=== PATIENT | male | born 1995 | race Caucasian/White ===

== ENCOUNTER 2016-04-28 05:47 | Emergency (ER) | payer SELFPAY ==
[2013-11-09 09:05] VITALS: BMI 39.8
[~2016-04-28 05:47] MED LIST: HYDROCODON-ACE1 EAC9 PO
[2016-04-28 06:18] LABS: BASOPHILS 0.2 % (0.0-2.0); EOSINOPHILS 1.2 % (0-7); HEMOGLOBIN 16.9 g/dL (13.5-17.5); IMMATURE GRANULOCYTES 0.3 % (0-5); LYMPHOCYTES 20.2 % (15-50); MCH 33.6 pg (26.0-34.0); MCV 93.4 fL (80.0-100.0); MEAN PLATELET VOLUME 10.5 fL (7.4-10.4); MONOCYTES 8.6 % (2-11); NEUTROPHILS 69.5 % (40-80); PLATELET COUNT 246 10x3/uL (130-400); RBC 5.03 10x6/uL (4.20-6.10); RDW 12.3 % (11.5-14.5); WBC 11.4 10x3/uL (4.8-10.8)
[2016-04-28 06:40] LABS: AMORPHOUS SEDIMENT >1+ /lpf (NONE SEEN); APPEARANCE CLOUDY (CLEAR); BACTERIA NONE SEEN /hpf (NONE SEEN); BILIRUBIN NEGATIVE (NEGATIVE); COLOR YELLOW (YELLOW); EPITHELIAL CELLS NSEEN /hpf (0-5); GLUCOSE NEGATIVE (NEGATIVE); KETONE MODERATE mg/dL (NEGATIVE); LEUKOCYTE ESTERASE TRACE (NEGATIVE); NITRITE NEGATIVE (NEGATIVE); PROTEIN NEGATIVE (NEGATIVE); RED CELLS - URINE 0-5 /hpf (0-5); SPECIFIC GRAVITY 1.015 (1.005-1.020); SPERMATOZOA OCC /hpf (NONE SEEN); UROBILINOGEN NORMAL (NORMAL); WHITE CELLS - URINE 0-5 /hpf (0-5)
[2016-04-28 06:41] LABS: ALBUMIN 4.7 g/dL (3.4-5.0); ALKALINE PHOSPHATASE 49 U/L (46-116); ALT (SGPT) 28 U/L (10-68); AMYLASE - SERUM 44 U/L (25-115); BILIRUBIN - TOTAL 0.77 mg/dL (0.2-1.3); CALC OSMOLALITY 266 mosm/kg (275-300); CALCIUM 10.3 mg/dL (8.5-10.1); CARBON DIOXIDE 20.3 mmol/L (21.0-32.0); CHLORIDE - SERUM 99 mmol/L (98-107); CREATININE - SERUM 1.1 mg/dL (0.6-1.3); GLUCOSE 126 mg/dL (74-106); LIPASE 128 U/L (73-393); POTASSIUM - SERUM 3.3 mmol/L (3.5-5.1); SODIUM 133 mmol/L (136-145); UREA NITROGEN 10 mg/dL (7-18); eGFR NON AFRICAN AMERICAN > 90 mL/min (90-120)
[2016-04-28 06:43] LABS: C-REACTIVE PROTEIN < 0.2 mg/dL (0.0-0.9)
== END 2016-04-28 07:52 | disposition home or self-care (01) ==
LOC: D.ER 05:47
PROVIDERS: Emergency Medicine
DX: R10.13 Epigastric pain (principal); R11.10 Vomiting, unspecified; F19.10 Other psychoactive substance abuse, uncomplicated; F12.10 Cannabis abuse, uncomplicated

== ENCOUNTER 2017-06-05 13:30 | Emergency (ER) | payer MEDICAID ==
[2013-11-09 09:05] VITALS: BMI 39.8
[2017-06-05 16:41] LABS: APPEARANCE CLEAR (CLEAR); BILIRUBIN NEGATIVE (NEGATIVE); COLOR DK YELLOW (YELLOW); GLUCOSE NEGATIVE (NEGATIVE); KETONE LARGE mg/dL (NEGATIVE); NITRITE NEGATIVE (NEGATIVE); PROTEIN TRACE mg/dL (NEGATIVE); UROBILINOGEN NORMAL (NORMAL)
[2017-06-05 16:44] LABS: BACTERIA MODERATE /hpf (NONE SEEN); MUCUS <1+ /lpf (NONE SEEN); WHITE CELLS - URINE 0-5 /hpf (0-5)
[2017-06-05 16:58] LABS: BASOPHILS 0.2 % (0-2); EOSINOPHILS 0 % (0-7); HEMATOCRIT 46.3 % (42.0-54.0); HEMOGLOBIN 16.9 g/dL (13.5-17.5); IMMATURE GRANULOCYTES 0.2 % (0-5); LYMPHOCYTES 35.3 % (15-50); MCH 33.7 pg (26.0-34.0); MCHC 36.5 g/dL (31.0-37.0); MCV 92.4 fL (80.0-100.0); MONOCYTES 22.7 % (2-11); NEUTROPHILS 41.6 % (40-80); PLATELET COUNT 183 10x3/uL (130-400); RBC 5.01 10x6/uL (4.20-6.10); RDW 12.1 % (11.5-14.5)
[2017-06-05 17:16] LABS: ALBUMIN 4.5 g/dL (3.4-5.0); ALKALINE PHOSPHATASE 45 U/L (46-116); ALT (SGPT) 51 U/L (10-68); AMYLASE - SERUM 34 U/L (25-115); CALC OSMOLALITY 272 mosm/kg (275-300); CALCIUM 9.7 mg/dL (8.5-10.1); CARBON DIOXIDE 23.7 mmol/L (21.0-32.0); CHLORIDE - SERUM 96 mmol/L (98-107); CREATININE - SERUM 1.1 mg/dL (0.6-1.3); GLUCOSE 90 mg/dL (74-106); LIPASE 82 U/L (73-393); PROTEIN - SERUM 8.2 g/dL (6.4-8.2); SODIUM 136 mmol/L (136-145); UREA NITROGEN 14 mg/dL (7-18); eGFR NON AFRICAN AMERICAN 90 mL/min (90-120)
== END 2017-06-05 20:32 | disposition home or self-care (01) ==
LOC: D.ER 13:30
PROVIDERS: Emergency Medicine
DX: R10.13 Epigastric pain (principal); E87.6 Hypokalemia; R11.2 Nausea with vomiting, unspecified; F17.200 Nicotine dependence, unspecified, uncomplicated

== ENCOUNTER 2017-06-07 12:01 | Inpatient (IN) | payer MEDICAID ==
[~2017-06-07] VITALS: Ht 174 cm; Wt 130.3 kg
--- NOTE | ~2017-06-07 | CN ---
PATIENT NAME:IVETT HINES MEDICAL RECORD: [id number] : 95 LOCATION:[facility] ADMIT DATE: 06/07/17 ACCOUNT: [id number] CONSULTING PHYSICIAN: IVETT REINA MD REFERRING PHYSICIAN: RAJAN WESTON MD DATE OF CONSULTATION: 06/07/2017 CHIEF COMPLAINT: Pain. HISTORY OF PRESENT ILLNESS: The patient has been having biliary colic type symptoms. He has been having abdominal pain in the epigastrium as well as the right upper quadrant, which radiates around to the back. It is made worse by eating food. Palpation and eating aggravates. Nothing alleviates. He has had nausea and vomiting as well. He describes the pain as severe. This is a consultation note addendum. For the typed portion of the consult note, please see the chart. This will include the past medical and surgical history, current medications, allergies, social history as well as family history. REVIEW OF SYSTEMS: As described above. No chest pain, no shortness of breath. Positive for headache. Positive for back pain. The review of systems is negative other than as is described above. PHYSICAL EXAMINATION: GENERAL: The patient does not appear acutely ill. He does not appear chronically ill. VITAL SIGNS: Reviewed. EARS: External ears appear normal. EYES: Extraocular movements are intact. NECK: Trachea is midline. CHEST: No intercostal retractions. PULMONARY: Nonlabored, no stridor. ABDOMEN: There is a Tang sign. Tenderness in the epigastrium as well as right upper quadrant. No Rovsing sign. No peritonitis to percussion. EXTREMITIES: No peripheral cyanosis. INTEGUMENT: No rash, no ulcerations. PSYCHIATRIC: Anxious affect. NEUROLOGIC: Answers questions appropriately, moves all extremities well. BACK: No thoracic kyphosis. LYMPHATICS: No lymphangitic streaking of the exposed extremities. IMPRESSION: Abdominal pain, likely due to biliary disease. PLAN: Continued radiologic workup for biliary disease. It is likely that he will require a laparoscopic cholecystectomy in the next few days. TRANSINT:[id number] Voice Confirmation ID: [id number] DOCUMENT ID: [id number] CONSULT REPORT [id number] IVETT HINES ROBERT MD CC: [id number] DICTATION DATE: 06/10/17 0955 MEDICAL RECORD LIBRARIAN: 06/10/17 1025 ADM IN [facility] [id number] [place] [address]
--- NOTE | ~2017-06-07 | OP ---
PATIENT NAME: IVETT HINES MEDICAL RECORD: [id number] :95 LOCATION:[id number] ADMISSION DATE:06/07/17 SURGEON: IVETT REINA MD DATE OF OPERATION: 06/09/2017 PREOPERATIVE DIAGNOSIS: Biliary dyskinesia. POSTOPERATIVE DIAGNOSIS: Biliary dyskinesia with hepatomegaly. PROCEDURES: 1. Laparoscopic cholecystectomy. 2. Intraoperative cholangiography without immediate surgeon interpretation. 3. An 18-gauge core needle liver biopsy. SURGEON: Ivett Reina MD COMPUTER AIDED DESIGN TECHNICIAN: None. BLOOD LOSS: Minimal. ANESTHESIA: General. COMPLICATIONS: None. The risks, possible complications, and alternatives to the procedure were explained to the patient. He elects to proceed. The indication for liver biopsy was hepatomegaly. The patient had exact reproduction of symptoms during the PIPIDA scan. OPERATIVE COURSE: The patient was conveyed to the operating room electively on 06/09/2017. General anesthesia was induced by anesthesia staff. The abdomen was sterilely prepped and draped. A small skin anita was accomplished in the left upper quadrant. A Veress needle was inserted through the skin anita into the peritoneal cavity. CO2 insufflation was begun. Once a sufficient pneumoperitoneum had been achieved, a 5-mm trocar was inserted through an incision in the right upper quadrant. Under direct internal vision utilizing a television camera, a 12-mm trocar was inserted through an incision at the umbilicus. Another 5-mm trocar was inserted through an incision in the left upper quadrant. Another 5-mm trocar was inserted through an incision in the right upper quadrant. During insertion of the Veress needle and all trocars, there appeared to have been no injury to the bowels, any intraperitoneal or retroperitoneal structures. Under laparoscopic guidance, I percutaneously accessed the right upper quadrant utilizing an 18-gauge core needle liver biopsy device. Cores were obtained over the convexity of the liver. The biopsy sites were made hemostatic with electrocautery. I then advanced a cholangiogram trocar. I punctured the fundus of the gallbladder. I aspirated bile. I then injected dye. Under real time fluoroscopy, static images were obtained. These were cholangiography images. The cholangiogram trocar was removed. The gallbladder was grasped and retracted cephalad. The infundibulum was grasped and retracted laterally. Blunt dissection was begun on the triangle of OPERATIVE REPORT [id number] IVETT HINES Calot. One cystic artery and 1 cystic duct were identified. These were clipped multiply and divided between clips. The gallbladder was then excised from its bed and the liver. It was placed within an Endobag retrieval device and was withdrawn through the umbilical fascia defect. The 12-mm trocar was replaced and the abdomen reinsufflated. I irrigated and aspirated the right upper quadrant. There was no bleeding even at low pressure of 8. The fascia at the umbilical site was closed with the Ron-Leslee suture closure device and 0 Vicryl suture. All the trocars were removed and the abdomen desufflated. The umbilical skin was closed with interrupted 4-0 Vicryl Rapide sutures. The skin at the end of sites was closed with multiple interrupted intracuticular 4-0 Vicryls. Benzoin and Steri-Strips were applied. The patient was then extubated and conveyed to post-anesthesia care unit where he was in stable condition. TRANSINT:[id number] Voice Confirmation ID: [id number] DOCUMENT ID: [id number] IVETT REINA MD CC: RAJAN WESTON MD [id number] DICTATION DATE: 06/10/17 1044 MEDICAL I D SALES: 06/10/17 1121 ADM IN [facility] [address] [place] [address]
[2017-06-07 13:22] LABS: BASOPHILS 0.4 % (0-2); EOSINOPHILS 0.2 % (0-7); HEMATOCRIT 45.9 % (42.0-54.0); HEMOGLOBIN 16.4 g/dL (13.5-17.5); IMMATURE GRANULOCYTES 0.2 % (0-5); LYMPHOCYTES 30.1 % (15-50); MCH 33.1 pg (26.0-34.0); MCHC 35.7 g/dL (31.0-37.0); MCV 92.5 fL (80.0-100.0); MEAN PLATELET VOLUME 10.4 fL (7.4-10.4); MONOCYTES 14.9 % (2-11); NEUTROPHILS 54.2 % (40-80); PLATELET COUNT 198 10x3/uL (130-400); RBC 4.96 10x6/uL (4.20-6.10); RDW 11.9 % (11.5-14.5)
[2017-06-07 13:47] LABS: APPEARANCE CLOUDY (CLEAR); BILIRUBIN NEGATIVE (NEGATIVE); COLOR YELLOW (YELLOW); GLUCOSE NEGATIVE (NEGATIVE); KETONE LARGE mg/dL (NEGATIVE); NITRITE NEGATIVE (NEGATIVE); PROTEIN 1+ mg/dL (NEGATIVE); SPECIFIC GRAVITY 1.005 (1.005-1.020); UROBILINOGEN NORMAL (NORMAL)
[2017-06-07 13:48] LABS: AMORPHOUS SEDIMENT <1+ /lpf (NONE SEEN); BACTERIA MANY /hpf (NONE SEEN); EPITHELIAL CELLS 0-5 /hpf (0-5); MUCUS >1+ /lpf (NONE SEEN); RED CELLS - URINE NONE SEEN /hpf (0-5); WHITE CELLS - URINE 0-5 /hpf (0-5)
[2017-06-07 14:48] LABS: ALBUMIN 4.2 g/dL (3.4-5.0); ALKALINE PHOSPHATASE 44 U/L (46-116); ALT (SGPT) 41 U/L (10-68); AMYLASE - SERUM 36 U/L (25-115); BILIRUBIN - TOTAL 0.76 mg/dL (0.2-1.3); CALC OSMOLALITY 276 mosm/kg (275-300); CALCIUM 9.4 mg/dL (8.5-10.1); CARBON DIOXIDE 25.3 mmol/L (21.0-32.0); CHLORIDE - SERUM 99 mmol/L (98-107); CREATININE - SERUM 1.2 mg/dL (0.6-1.3); GLUCOSE 107 mg/dL (74-106); LIPASE 86 U/L (73-393); POTASSIUM - SERUM 3.2 mmol/L (3.5-5.1); PROTEIN - SERUM 7.7 g/dL (6.4-8.2); SODIUM 138 mmol/L (136-145); UREA NITROGEN 14 mg/dL (7-18); eGFR NON AFRICAN AMERICAN 81 mL/min (90-120)
[2017-06-07] MEDS ORDERED: ACETAMINOPHEN325 MG PO (17:49)
[2017-06-07 18:05] VITALS: BP 146/90; Ht 174 cm; Wt 130.3 kg
[2017-06-07 23:37] VITALS: BP 153/79
[2017-06-08 04:00] VITALS: BP 135/92
[2017-06-08 05:11] LABS: BASOPHILS 0.3 % (0-2); EOSINOPHILS 1.3 % (0-7); HEMATOCRIT 43.5 % (42.0-54.0); HEMOGLOBIN 15.1 g/dL (13.5-17.5); IMMATURE GRANULOCYTES 0.2 % (0-5); LYMPHOCYTES 56.7 % (15-50); MCH 32.8 pg (26.0-34.0); MCHC 34.7 g/dL (31.0-37.0); MEAN PLATELET VOLUME 10.6 fL (7.4-10.4); MONOCYTES 14.8 % (2-11); NEUTROPHILS 26.7 % (40-80); PLATELET COUNT 175 10x3/uL (130-400); RDW 12.1 % (11.5-14.5); WBC 6.2 10x3/uL (4.8-10.8)
[2017-06-08 05:28] LABS: MCV 94.6 fL (80.0-100.0)
[2017-06-08 05:41] LABS: ALBUMIN 3.8 g/dL (3.4-5.0); ALKALINE PHOSPHATASE 41 U/L (46-116); ALT (SGPT) 34 U/L (10-68); CALC OSMOLALITY 274 mosm/kg (275-300); CALCIUM 8.7 mg/dL (8.5-10.1); CARBON DIOXIDE 27.4 mmol/L (21.0-32.0); CHLORIDE - SERUM 103 mmol/L (98-107); GLUCOSE 97 mg/dL (74-106); POTASSIUM - SERUM 3.8 mmol/L (3.5-5.1); PROTEIN - SERUM 6.9 g/dL (6.4-8.2); SODIUM 138 mmol/L (136-145); UREA NITROGEN 9 mg/dL (7-18); eGFR NON AFRICAN AMERICAN > 90 mL/min (90-120)
[2017-06-08 08:04] VITALS: BP 157/91
[2017-06-08 12:13] VITALS: BP 133/82
[2017-06-08 16:24] VITALS: BP 140/89
[2017-06-08 20:00] VITALS: BP 136/89
[2017-06-09] VITALS (10 sets, daily range): BP systolic 130–191; BP diastolic 86–110
[2017-06-09 05:17] LABS: BASOPHILS 0.2 % (0-2); EOSINOPHILS 2.7 % (0-7); HEMATOCRIT 46.8 % (42.0-54.0); HEMOGLOBIN 16.2 g/dL (13.5-17.5); IMMATURE GRANULOCYTES 0.3 % (0-5); LYMPHOCYTES 49.3 % (15-50); MCH 32.8 pg (26.0-34.0); MCHC 34.6 g/dL (31.0-37.0); MCV 94.7 fL (80.0-100.0); MEAN PLATELET VOLUME 10.7 fL (7.4-10.4); MONOCYTES 15.5 % (2-11); PLATELET COUNT 201 10x3/uL (130-400); RBC 4.94 10x6/uL (4.20-6.10); WBC 5.9 10x3/uL (4.8-10.8)
[2017-06-09 05:40] LABS: ALBUMIN 3.8 g/dL (3.4-5.0); ALKALINE PHOSPHATASE 43 U/L (46-116); ALT (SGPT) 32 U/L (10-68); CALC OSMOLALITY 272 mosm/kg (275-300); CALCIUM 8.8 mg/dL (8.5-10.1); CARBON DIOXIDE 28.3 mmol/L (21.0-32.0); CHLORIDE - SERUM 101 mmol/L (98-107); CREATININE - SERUM 0.9 mg/dL (0.6-1.3); GLUCOSE 90 mg/dL (74-106); PROTEIN - SERUM 7.3 g/dL (6.4-8.2); SODIUM 137 mmol/L (136-145); UREA NITROGEN 9 mg/dL (7-18); eGFR NON AFRICAN AMERICAN > 90 mL/min (90-120)
[2017-06-10 00:10] VITALS: BP 155/88
[2017-06-10 04:00] VITALS: BP 141/97
[2017-06-10 04:24] LABS: BASOPHILS 0 % (0-2); EOSINOPHILS 0.2 % (0-7); HEMATOCRIT 48.5 % (42.0-54.0); HEMOGLOBIN 17.2 g/dL (13.5-17.5); IMMATURE GRANULOCYTES 0.3 % (0-5); LYMPHOCYTES 15.1 % (15-50); MCH 33.1 pg (26.0-34.0); MCHC 35.5 g/dL (31.0-37.0); MCV 93.3 fL (80.0-100.0); MEAN PLATELET VOLUME 10.3 fL (7.4-10.4); MONOCYTES 11.9 % (2-11); NEUTROPHILS 72.5 % (40-80); RDW 11.8 % (11.5-14.5)
[2017-06-10 04:31] LABS: PLATELET COUNT 244 10x3/uL (130-400); WBC 11.1 10x3/uL (4.8-10.8)
[2017-06-10 04:44] LABS: ALBUMIN 4.1 g/dL (3.4-5.0); ALKALINE PHOSPHATASE 52 U/L (46-116); CALC OSMOLALITY 265 mosm/kg (275-300); CALCIUM 9.3 mg/dL (8.5-10.1); CARBON DIOXIDE 24.1 mmol/L (21.0-32.0); CHLORIDE - SERUM 98 mmol/L (98-107); GLUCOSE 110 mg/dL (74-106); POTASSIUM - SERUM 4.2 mmol/L (3.5-5.1); PROTEIN - SERUM 8.2 g/dL (6.4-8.2); SODIUM 133 mmol/L (136-145); UREA NITROGEN 9 mg/dL (7-18); eGFR NON AFRICAN AMERICAN > 90 mL/min (90-120)
[2017-06-10 04:52] LABS: ALT (SGPT) 101 U/L (10-68)
[2017-06-10 08:30] VITALS: BP 139/85
[2017-06-10] MEDS ORDERED: HYDROCODON-ACE1 EAC7 PO (13:17)
== END 2017-06-10 13:57 | disposition home or self-care (01) | DRG 419 ==
LOC: D.ER 12:01 → D.SDCHOLD 16:29 → D.MS 16:29
PROVIDERS: Emergency Medicine; Family Medicine; Physician Assistant; Surgery
PROC: 0FB03ZX Excision of Liver, Percutaneous Approach, Diagnostic (ICD-10-PCS; 2017-06-09)
PROC: 0FT44ZZ Resection of Gallbladder, Percutaneous Endoscopic Approach (ICD-10-PCS; principal; 2017-06-09 14:15)
PROC: BF131ZZ Fluoroscopy of Gallbladder and Bile Ducts using Low Osmolar Contrast (ICD-10-PCS; 2017-06-09 14:15)
DX: K82.8 Other specified diseases of gallbladder (principal); J45.909 Unspecified asthma, uncomplicated; E87.6 Hypokalemia; I10 Essential (primary) hypertension; Z87.891 Personal history of nicotine dependence; R16.0 Hepatomegaly, not elsewhere classified

== ENCOUNTER 2019-02-06 07:21 | Emergency (ER) | payer SELFPAY ==
[~2019-02-06] VITALS: Ht 174 cm; Wt 109.1 kg
[~2019-02-06 07:21] MED LIST changes: +ACETAMINOPHEN325 MG PO; +HYDROCODON-ACE1 EAC7 PO
[2019-02-06 07:31] VITALS: Ht 174 cm; Wt 109.1 kg
[2019-02-06 07:48] LABS: APPEARANCE CLEAR (CLEAR); BILIRUBIN NEGATIVE (NEGATIVE); COLOR YELLOW (YELLOW); GLUCOSE NEGATIVE (NEGATIVE); KETONE NEGATIVE (NEGATIVE); NITRITE NEGATIVE (NEGATIVE); PROTEIN NEGATIVE (NEGATIVE); UROBILINOGEN NORMAL (NORMAL)
[2019-02-06 08:00] LABS: BASOPHILS 0.2 % (0-2); EOSINOPHILS 2.6 % (0-7); HEMATOCRIT 47.8 % (42.0-54.0); HEMOGLOBIN 16.6 g/dL (13.5-17.5); IMMATURE GRANULOCYTES 0.3 % (0-5); LYMPHOCYTES 17.2 % (15-50); MCH 33.9 pg (26.0-34.0); MCHC 34.7 g/dL (31.0-37.0); MCV 97.6 fL (80.0-100.0); MONOCYTES 6.6 % (2-11); NEUTROPHILS 73.1 % (40-80); PLATELET COUNT 254 10x3/uL (130-400); RDW 12.3 % (11.5-14.5); WBC 9.8 10x3/uL (4.8-10.8)
[2019-02-06 08:17] LABS: ALBUMIN 4.4 g/dL (3.4-5.0); ALKALINE PHOSPHATASE 62 U/L (46-116); ALT (SGPT) 38 U/L (10-68); CALC OSMOLALITY 285 mosm/kg (275-300); CALCIUM 9.6 mg/dL (8.5-10.1); CARBON DIOXIDE 24.3 mmol/L (21.0-32.0); CHLORIDE - SERUM 105 mmol/L (98-107); CREATININE - SERUM 1.1 mg/dL (0.6-1.3); GLUCOSE 129 mg/dL (74-106); POTASSIUM - SERUM 3.9 mmol/L (3.5-5.1); PROTEIN - SERUM 7.6 g/dL (6.4-8.2); SODIUM 142 mmol/L (136-145); UREA NITROGEN 14 mg/dL (7-18); eGFR NON AFRICAN AMERICAN 88 mL/min (90-120)
[2019-02-06 08:19] LABS: AMYLASE - SERUM 67 U/L (25-115); LIPASE 181 U/L (73-393); TROPONIN-I < 0.017 ng/mL (0.000-0.060)
[2019-02-06 10:50] VITALS: BP 136/89
== END 2019-02-06 10:51 | disposition home or self-care (01) ==
LOC: D.ER 07:21
PROVIDERS: Family Medicine
DX: R10.9 Unspecified abdominal pain (principal)

== ENCOUNTER 2019-11-10 17:12 | Emergency (ER) | payer SELFPAY ==
[~2019-11-10] VITALS: Ht 172.7 cm; Wt 109.1 kg
[2019-11-10 17:26] VITALS: Ht 172.7 cm; Wt 109.1 kg
[2019-11-10 18:32] LABS: HEMATOCRIT 48.7 % (42.0-54.0); HEMOGLOBIN 16.5 g/dL (13.5-17.5); LYMPHOCYTES 10.2 % (15-50); MCH 32.4 pg (26.0-34.0); MCHC 33.9 g/dL (31.0-37.0); MCV 95.7 fL (80.0-100.0); MEAN PLATELET VOLUME 9.8 fL (7.4-10.4); NEUTROPHILS 84.4 % (40-80); PLATELET COUNT 268 10x3/uL (130-400); RBC 5.09 10x6/uL (4.20-6.10); RDW 12.5 % (11.5-14.5); WBC 9.3 10x3/uL (4.8-10.8)
[2019-11-10 18:47] LABS: CALC OSMOLALITY 270 mosm/kg (275-300); CALCIUM 9.6 mg/dL (8.5-10.1); CARBON DIOXIDE 22.8 mmol/L (21.0-32.0); CHLORIDE - SERUM 101 mmol/L (98-107); CREATININE - SERUM 1.1 mg/dL (0.6-1.3); GLUCOSE 117 mg/dL (74-106); POTASSIUM - SERUM 3.6 mmol/L (3.5-5.1); SODIUM 135 mmol/L (136-145); UREA NITROGEN 13 mg/dL (7-18); eGFR NON AFRICAN AMERICAN 87 mL/min (90-120)
[2019-11-10 18:51] LABS: ALBUMIN 4.5 g/dL (3.4-5.0); ALKALINE PHOSPHATASE 57 U/L (30-120); ALT (SGPT) 32 U/L (10-68); AMYLASE - SERUM 49 U/L (25-115); BILIRUBIN - TOTAL 0.96 mg/dL (0.2-1.3); LIPASE 85 U/L (73-393); PROTEIN - SERUM 7.9 g/dL (6.4-8.2)
[2019-11-10 19:49] LABS: BILIRUBIN NEGATIVE (NEGATIVE); GLUCOSE NEGATIVE (NEGATIVE); KETONE LARGE mg/dL (NEGATIVE); NITRITE NEGATIVE (NEGATIVE); SPECIFIC GRAVITY 1.015 (1.005-1.020); UROBILINOGEN NORMAL (NORMAL)
[2019-11-10] MEDS ORDERED: LEVSIN/ANASP0.125 MG PO (20:58)
[2019-11-10] MEDS ORDERED: OMEPRAZOLE20 M1 PO (20:58)
[2019-11-10 21:32] VITALS: BP 143/68
== END 2019-11-10 21:33 | disposition home or self-care (01) ==
LOC: D.ER 17:12
PROVIDERS: Emergency Medicine
DX: R10.9 Unspecified abdominal pain (principal); K29.70 Gastritis, unspecified, without bleeding

== ENCOUNTER 2019-12-22 09:14 | Emergency (ER) | payer SELFPAY ==
[~2019-12-22] VITALS: Ht 172.7 cm; Wt 109.1 kg
[~2019-12-22 09:14] MED LIST changes: +LEVSIN/ANASP0.125 MG PO; +OMEPRAZOLE20 M1 PO
[2019-12-22 09:18] VITALS: Ht 172.7 cm; Wt 109.1 kg
[2019-12-22 09:54] VITALS: BP 163/111
[2019-12-22 10:00] LABS: BILIRUBIN NEGATIVE (NEGATIVE); KETONE NEGATIVE (NEGATIVE); NITRITE NEGATIVE (NEGATIVE); UROBILINOGEN NORMAL (NORMAL)
[2019-12-22 10:03] LABS: BASOPHILS 0.1 % (0-2); EOSINOPHILS 0.6 % (0-7); HEMATOCRIT 48.9 % (42.0-54.0); HEMOGLOBIN 17.1 g/dL (13.5-17.5); IMMATURE GRANULOCYTES 0.2 % (0-5); LYMPHOCYTES 18.5 % (15-50); MCH 32.7 pg (26.0-34.0); MCV 93.5 fL (80.0-100.0); MEAN PLATELET VOLUME 10.1 fL (7.4-10.4); MONOCYTES 8.7 % (2-11); NEUTROPHILS 71.9 % (40-80); PLATELET COUNT 283 10x3/uL (130-400); RBC 5.23 10x6/uL (4.20-6.10); RDW 12.2 % (11.5-14.5); WBC 8.7 10x3/uL (4.8-10.8)
[2019-12-22 10:08] LABS: CALC OSMOLALITY 271 mosm/kg (275-300); CALCIUM 10.7 mg/dL (8.5-10.1); CARBON DIOXIDE 21.2 mmol/L (21.0-32.0); CHLORIDE - SERUM 101 mmol/L (98-107); CREATININE - SERUM 1.1 mg/dL (0.6-1.3); GLUCOSE 124 mg/dL (74-106); POTASSIUM - SERUM 3.7 mmol/L (3.5-5.1); SODIUM 135 mmol/L (136-145); UREA NITROGEN 16 mg/dL (7-18); eGFR NON AFRICAN AMERICAN 87 mL/min (90-120)
[2019-12-22] MEDS ORDERED: ZOFRAN ODT4 MG/UDTAB PO (10:08)
[2019-12-22] MEDS ORDERED: PROTONIX40 MG PO (10:08)
[2019-12-22 10:14] LABS: ALKALINE PHOSPHATASE 68 U/L (30-120); ALT (SGPT) 25 U/L (10-68); AMYLASE - SERUM 64 U/L (25-115); BILIRUBIN - TOTAL 0.76 mg/dL (0.2-1.3); LIPASE 97 U/L (73-393); PROTEIN - SERUM 8.4 g/dL (6.4-8.2)
== END 2019-12-22 12:10 | disposition home or self-care (01) ==
LOC: D.ER 09:14
PROVIDERS: Emergency Medicine
DX: K26.9 Duodenal ulcer, unspecified as acute or chronic, without hemorrhage or perforation (principal); R11.2 Nausea with vomiting, unspecified; R10.9 Unspecified abdominal pain

== ENCOUNTER 2019-12-26 18:56 | Emergency (ER) | payer MEDICAID ==
[~2019-12-26] VITALS: Ht 172.7 cm; Wt 104.5 kg
[~2019-12-26 18:56] MED LIST changes: +PROTONIX40 MG PO; +ZOFRAN ODT4 MG/UDTAB PO
[2019-12-26 19:09] VITALS: Ht 172.7 cm; Wt 104.5 kg
[2019-12-26 19:51] LABS: BASOPHILS 0.2 % (0-2); EOSINOPHILS 0.5 % (0-7); HEMATOCRIT 44.1 % (42.0-54.0); HEMOGLOBIN 15.2 g/dL (13.5-17.5); IMMATURE GRANULOCYTES 0.1 % (0-5); MCH 32.3 pg (26.0-34.0); MCHC 34.5 g/dL (31.0-37.0); MCV 93.8 fL (80.0-100.0); MEAN PLATELET VOLUME 9.7 fL (7.4-10.4); NEUTROPHILS 64.2 % (40-80); PLATELET COUNT 244 10x3/uL (130-400); RDW 12.2 % (11.5-14.5); WBC 8.1 10x3/uL (4.8-10.8)
[2019-12-26 19:54] LABS: BILIRUBIN NEGATIVE (NEGATIVE); KETONE LARGE mg/dL (NEGATIVE); NITRITE NEGATIVE (NEGATIVE); UROBILINOGEN NORMAL (NORMAL)
[2019-12-26 20:09] LABS: CALC OSMOLALITY 275 mosm/kg (275-300); CALCIUM 9.5 mg/dL (8.5-10.1); CARBON DIOXIDE 28.5 mmol/L (21.0-32.0); CHLORIDE - SERUM 102 mmol/L (98-107); CREATININE - SERUM 1.3 mg/dL (0.6-1.3); GLUCOSE 91 mg/dL (74-106); POTASSIUM - SERUM 3.3 mmol/L (3.5-5.1); SODIUM 138 mmol/L (136-145); UREA NITROGEN 12 mg/dL (7-18); eGFR NON AFRICAN AMERICAN 72 mL/min (90-120)
[2019-12-26 20:13] LABS: ALBUMIN 4.5 g/dL (3.4-5.0); ALKALINE PHOSPHATASE 53 U/L (30-120); ALT (SGPT) 24 U/L (10-68); AMYLASE - SERUM 45 U/L (25-115); BILIRUBIN - TOTAL 0.67 mg/dL (0.2-1.3); LIPASE 78 U/L (73-393); PROTEIN - SERUM 7.6 g/dL (6.4-8.2)
[2019-12-26 20:14] LABS: TROPONIN-I < 0.017 ng/mL (0.000-0.060)
[2019-12-26] MEDS ORDERED: PROTONIX40 MG PO (20:41)
[2019-12-26 21:19] VITALS: BP 126/71
== END 2019-12-26 22:03 | disposition home or self-care (01) ==
LOC: D.ER 18:56
PROVIDERS: Family Medicine
DX: K29.70 Gastritis, unspecified, without bleeding (principal); R11.10 Vomiting, unspecified; F12.10 Cannabis abuse, uncomplicated; R10.9 Unspecified abdominal pain

== ENCOUNTER 2020-07-28 08:46 | Emergency (ER) | payer MEDICAID ==
[~2020-07-28] VITALS: Ht 172.7 cm; Wt 104.5 kg
[2020-07-28 08:53] VITALS: Ht 172.7 cm; Wt 104.5 kg
[2020-07-28 09:08] LABS: BASOPHILS 0.1 % (0-2); HEMATOCRIT 50.2 % (42.0-54.0); HEMOGLOBIN 17.3 g/dL (13.5-17.5); IMMATURE GRANULOCYTES 0.3 % (0-5); LYMPHOCYTE ABS# 1.02 10x3/uL (1.32-3.57); LYMPHOCYTES 9.5 % (15-50); MCH 33.2 pg (26.0-34.0); MCHC 34.5 g/dL (31.0-37.0); MCV 96.4 fL (80.0-100.0); MEAN PLATELET VOLUME 10.4 fL (7.4-10.4); MONOCYTES 9.2 % (2-11); NEUTROPHILS 79.9 % (40-80); PLATELET COUNT 260 10x3/uL (130-400); RBC 5.21 10x6/uL (4.20-6.10); WBC 10.8 10x3/uL (4.8-10.8)
[2020-07-28 09:15] LABS: CALC OSMOLALITY 271 mosm/kg (275-300); CALCIUM 9.8 mg/dL (8.5-10.1); CARBON DIOXIDE 22.8 mmol/L (21.0-32.0); CHLORIDE - SERUM 100 mmol/L (98-107); CREATININE - SERUM 1.1 mg/dL (0.6-1.3); GLUCOSE 106 mg/dL (74-106); POTASSIUM - SERUM 3.7 mmol/L (3.5-5.1); SODIUM 135 mmol/L (136-145); UREA NITROGEN 18 mg/dL (7-18); eGFR NON AFRICAN AMERICAN 87 mL/min (90-120)
[2020-07-28 09:21] LABS: ALBUMIN 4.8 g/dL (3.4-5.0); ALKALINE PHOSPHATASE 63 U/L (30-120); ALT (SGPT) 35 U/L (10-68); AMYLASE - SERUM 55 U/L (25-115); BILIRUBIN - TOTAL 0.86 mg/dL (0.2-1.3); LIPASE 67 U/L (73-393); PROTEIN - SERUM 8.6 g/dL (6.4-8.2)
[2020-07-28 09:43] LABS: BILIRUBIN NEGATIVE (NEGATIVE); KETONE LARGE mg/dL (NEGATIVE); NITRITE NEGATIVE (NEGATIVE); UROBILINOGEN NORMAL mg/dL (< 2)
[2020-07-28 14:43] VITALS: BP 132/76
[2020-07-28] MEDS ORDERED: ZOFRAN ODT4 MG/UDTAB PO (15:20)
[2020-07-28] MEDS ORDERED: CARAFATE1 G PO (15:20)
[2020-07-28] MEDS ORDERED: BENTYL10 MG PO (15:20)
[2020-07-28] MEDS ORDERED: REGLAN10 MG PO (15:20)
== END 2020-07-28 15:50 | disposition home or self-care (01) ==
LOC: D.ER 08:46
PROVIDERS: Emergency Medicine
DX: K29.70 Gastritis, unspecified, without bleeding (principal); R11.2 Nausea with vomiting, unspecified; R19.7 Diarrhea, unspecified; R10.13 Epigastric pain